=== PATIENT | female | born 1990 | race Caucasian/White ===

== ENCOUNTER 2017-10-26 12:57 | Emergency (ER) | payer OTHER ==
[~2017-10-26] VITALS: Ht 160 cm; Wt 62.1 kg
[~2017-10-26 12:57] MED LIST: HYDROCODONE-AP1 EAC6 PO; IBUPROFEN 800800 M1 PO; IMITREX100 MG PO; LEVAQUIN 750 M750 MG PO; NEURONTIN 300300 M1 PO; ROBAXIN 750 MG750 M1 PO
[2017-10-26 13:36] LABS: URINE BILIRUBIN NEGATIVE (Negative); URINE BLOOD NEGATIVE (Negative); URINE CLARITY CLEAR; URINE COLOR YELLOW; URINE GLUCOSE-RANDOM NEGATIVE (Negative); URINE KETONES NEGATIVE (Negative); URINE LEUKOCYTES-REFLEX NEGATIVE (Negative); URINE NITRITE-REFLEX NEGATIVE (Negative); URINE PROTEIN NEGATIVE (Negative); URINE SPECIFIC GRAVITY >= 1.030 (1.005-1.030); URINE UROBILINOGEN 0.2 E.U./dl (0.2-1.0)
[2017-10-26 13:43] LABS: ABSOLUTE BASOPHILS 0.1 thou/uL (0.0-0.2); ABSOLUTE EOSINOPHILS 0.3 thou/uL (0.0-0.7); ABSOLUTE MONOCYTES 0.9 thou/uL (0.0-1.2); ABSOLUTE NEUTROPHILS 11.3 thou/uL (1.6-8.1); BASOPHILS 0.5 %; EOSINOPHILS 1.9 %; HEMATOCRIT 41.9 % (37.0-47.0); HEMOGLOBIN 14.3 gm/dL (12.0-15.0); LYMPHOCYTES 13.8 %; MCH 30.7 pg (26.0-34.0); MCHC 34.1 g/dL (28.0-37.0); MONOCYTES 6.3 %; MPV 9.5 fl. (7.2-11.1); NUCLEATED RBCS 0 /100WBC; PLATELET COUNT* 208 thou/uL (150-400); POLYS 77.5 %; RBC 4.66 mil/uL (4.20-5.00); RDW-CV 12.5 % (10.5-14.5); WBC 14.6 thou/uL (4.0-11.0)
[2017-10-26 13:44] LABS: AMP/METHAMP Negative (Negative); BARBITURATES Negative (Negative); BENZODIAZEPINES Negative (Negative); COCAINE Negative (Negative); METHADONE Negative (Negative); OPIATES Negative (Negative); PCP Negative (Negative); THC Negative (Negative)
[2017-10-26 13:47] LABS: CALCIUM 9.6 mg/dL (8.5-10.1); CREATININE 0.6 mg/dL (0.6-1.3); POTASSIUM 3.6 mmol/L (3.5-5.1)
[2017-10-26 13:51] LABS: ALBUMIN 3.5 g/dL (3.4-5.0); TOTAL BILIRUBIN 0.1 mg/dL (<0.1-1.0); TOTAL PROTEIN 7.5 g/dL (6.4-8.2)
[2017-10-26 13:58] LABS: INFLUENZA A ANTIGEN None Detected (None Detect)
[2017-10-26] MEDS ORDERED: ONDANSETRON HCL4 M2 PO (14:48)
[2017-10-26] MEDS ORDERED: TAMIFLU75 MG PO ×2 (14:50→14:51)
[2017-10-26] MEDS ORDERED: IBUPROFEN 800800 MG PO (14:58)
[2017-10-26 15:08] VITALS: BP 118/58
== END 2017-10-26 15:09 | disposition home or self-care (01) ==
LOC: M.ERS 12:57
PROVIDERS: Nurse Practitioner
DX: J10.1 Influenza due to other identified influenza virus with other respiratory manifestations (principal); R10.11 Right upper quadrant pain; R10.31 Right lower quadrant pain; G43.909 Migraine, unspecified, not intractable, without status migrainosus; F17.200 Nicotine dependence, unspecified, uncomplicated